=== PATIENT | female | born 1960 | race Caucasian/White ===

== ENCOUNTER 2022-01-09 13:17 | Outpatient (CLI) | payer OTHER, SELFPAY ==
[2022-01-09 12:47] LABS: Chloride* 107 mmol/L (96-114); Sodium* 138 mmol/L (135-149)
[2022-01-09 12:48] LABS: Potassium* 4.4 mmol/L (3.6-5.1)
[2022-01-09 12:50] LABS: Blood Urea Nitrogen* 17 mg/dL (7-30); Carbon Dioxide* 27 mmol/L (20-32); Cholesterol* 160 mg/dL (90-199); Creatinine* 0.8 mg/dL (0.5-1.5); Estimated Glomerular Filt Rate 83 ml/min; Glucose* 98 mg/dL (60-115)
[2022-01-09 12:51] LABS: Calcium* 9.3 mg/dL (8.4-10.6); HDL Cholesterol* 54 mg/dL (>=50); LDL Cholesterol Calculated 92 mg/dL (<100); Triglycerides* 72 mg/dL (40-149)
== END 2022-01-09 13:18 | disposition home or self-care (01) ==
PROVIDERS: PCP Emergency Medicine; Visit Provider Emergency Medicine
DX: Z00.00 Encounter for general adult medical examination without abnormal findings (principal); I10 Essential (primary) hypertension; Z13.6 Encounter for screening for cardiovascular disorders
CPT/HCPCS: 80048; 80061

== ENCOUNTER 2022-06-12 08:34 | Outpatient (CLI) | payer OTHER, SELFPAY ==
--- NOTE | 2022-06-12 09:15 | CRLHL7_ITS ---
For Patients: As a result of the Century Cures Act, medical imaging exams and procedure reports are released immediately into your electronic medical record. You may view this report before your referring provider. If you have questions, please contact your health care provider. BILATERAL SCREENING MAMMOGRAM WITH COMPUTER-AIDED DETECTION AND TOMOSYNTHESIS TECHNIQUE: CC and MLO views were obtained. These mammographic images have been obtained using full-field digital technique. These mammographic images were interpreted with the benefit of computer-aided detection. Breast Tomosynthesis was used in this interpretation. COMPARISON FILM: 01/16/20 Diag, 01/16/20 US bx, 01/11/20 Lt Diag, 01/02/19. FINDINGS: The breasts are heterogeneously dense, which may obscure small masses IMPRESSION: There is no radiographic evidence for malignancy. ASSESSMENT: BI-RADS Category 2: Benign RECOMMENDATION: Routine screening mammogram in 1 year. A lay language report of this examination will be provided to the patient. Omar Mattson M.D. Diagnostic Radiologist [email or web address] KAYLA/Dictated by: Omar Mattson MD @ 06/12/2022 1:11:00 PM (Electronically Signed)
== END 2022-06-12 08:35 | disposition home or self-care (01) ==
PROVIDERS: PCP Emergency Medicine; Visit Provider Emergency Medicine
DX: Z12.31 Encounter for screening mammogram for malignant neoplasm of breast (principal); R92.2 Inconclusive mammogram
CPT/HCPCS: 77063; 77067

== ENCOUNTER 2023-03-15 09:52 | Outpatient (CLI) | payer OTHER, SELFPAY | END 2023-03-15 09:53 | disposition home or self-care (01) | LOC: NFLDREF 03-16 11:21 | PROVIDERS: PCP Emergency Medicine; Referring Provider Emergency Medicine; Visit Provider Emergency Medicine | DX: I10 Essential (primary) hypertension (principal); Z13.1 Encounter for screening for diabetes mellitus; Z13.6 Encounter for screening for cardiovascular disorders; M85.80 Other specified disorders of bone density and structure, unspecified site; Z78.0 Asymptomatic menopausal state | CPT/HCPCS: 80048; 80061; 82306 ==

== ENCOUNTER 2023-06-23 13:12 | Outpatient (CLI) | payer OTHER, SELFPAY ==
--- NOTE | 2023-06-23 13:30 | XR_ITS ---
Patient: AMEE VYAS Facility:?[facility] Patient ID:?[id number] Site Patient ID:?[id number]. Site :?[id number] Study:?DEXA-Bone Density SPINE/BOTH HIPS-06/23/2023 1:38:08 PM Ordering Physician:NATALIA Final Report: DXA BONE MINERAL DENSITY STUDY Reason for exam: Screening. Current height (in): 67. Weight (lb): 172. Menopause age: 48. Ethnicity: White. 1. Have you had a previous hip or vertebral fracture? No. 2. Have you had any fractures during your adult life which did not result from significant trauma (e.g., auto accident)? No. 3. Did either of your parents have a hip fracture? No. 4. Do you smoke? No. 5. Have you ever taken Glucocorticoids? No. 6. Do you have rheumatoid arthritis? No. 7. Do you have secondary osteoporosis? No. 8. Do you drink 3 or more alcoholic drinks per day? No. 9. Are you being treated for osteoporosis? No. 10. Have you ever taken any of the following medications: Actonel, Evista, Fosamax, Miacalcin, Reclast, Boniva, Forteo, HRT (i.e., estrogen/hormone therapy), Protelos, Prolia, Vitamin D, Calcium, other ? please specify. ANSWER: Yes, Fosamax (i.e. alendronate), Vitamin D, and calcium. 11. Do you have any of the following medical conditions: Anorexia or bulimia, asthma or emphysema, end stage renal disease, hyperparathyroidism, any seizure disorders, cancer, inflammatory bowel diseases, hysterectomy, other ? please specify. ANSWER: No. 12. What was your maximum height (inches)? 67. 13. Do you perform weight bearing exercise regularly? Yes. 14. Do you regularly consume dairy products? Yes. 15. Do you drink caffeinated beverages? Yes. If female: 16. At what age did your period start? 11. 17. Are you premenopausal? No. 18. How many full-term pregnancies have you had? 2. 19. Have you ever missed your period for more than 6 months in a row (not including or menopause)? No. TECHNIQUE: Bone mineral density study was performed using the [employer]. FINDINGS: The results of the study expressed as bone mineral density (BMD) are as follows: Lumbar spine L1 to L4: BMD: 0.965 g/cm2. T-score: -0.7. Z-score: 1.0 Neck Left: BMD: 0.748 g/cm2. T-score: -0.9. Z-score: 0.6 Right: BMD: 0.743 g/cm2. T-score: -1.0. Z-score: 0.5 Total Left: BMD: 0.926 g/cm2. T-score: -0.1. Z-score: 1.1 Right: BMD: 0.903 g/cm2. T-score: -0.3. Z-score: 0.9 IMPRESSION: Normal bone density. Omar Mattson M.D. Diagnostic Radiologist [email or web address] ANKIT/radha D& Transcribed: 12:55 p.mMarizol garcia/Dictated by: Omar Mattson MD @ 06/24/2023 9:04:00 AM Signed by:?Omar Mattson MD @06/24/2023 1:42:46 PM (Electronic Signature)
--- NOTE | 2023-06-23 14:00 | MM_ITS ---
Patient: AMEE VYAS Facility:?[facility] Patient ID:?[id number] Site Patient ID:?[id number]. Site :?1960 Study:?XRay-Breast Bilateral 3D W/CAD-06/23/2023 1:57:50 PM Ordering Physician:?Daina Ovalles Final Report: BILATERAL SCREENING MAMMOGRAM WITH COMPUTER-AIDED DETECTION AND TOMOSYNTHESIS TECHNIQUE: CC and MLO views were obtained. These mammographic images have been obtained using full-field digital technique. These mammographic images were interpreted with the benefit of computer-aided detection. Breast Tomosynthesis was used in this interpretation. COMPARISON FILM: 06/12/22, 01/16/20, 01/11/20. FINDINGS: The breasts are heterogeneously dense, which may obscure small masses. IMPRESSION: There is no radiographic evidence for malignancy. ASSESSMENT: BI-RADS Category 2: Benign RECOMMENDATION: Routine screening mammogram in 1 year. A lay language report of this examination will be provided to the patient. Omar Mattson M.D. Diagnostic Radiologist [email or web address] DSM/sp R& Transcribed: 6:06 p.m. SP/Dictated by: Omar Mattson MD @ 06/24/2023 10:08:00 AM Signed by:?Omar Mattson MD @06/25/2023 5:42:52 AM (Electronic Signature)
== END 2023-06-23 13:13 | disposition home or self-care (01) ==
LOC: RAD 13:13
PROVIDERS: PCP Emergency Medicine; Visit Provider Emergency Medicine
DX: Z12.31 Encounter for screening mammogram for malignant neoplasm of breast (principal); R92.2 Inconclusive mammogram; Z13.820 Encounter for screening for osteoporosis
CPT/HCPCS: 77063; 77067; 77080

== ENCOUNTER 2024-03-20 08:51 | Outpatient (CLI) | payer MEDICARE, OTHER, SELFPAY | END 2024-03-20 08:52 | disposition home or self-care (01) | LOC: NFLDREF 03-21 05:43 | PROVIDERS: PCP Emergency Medicine; Referring Provider Emergency Medicine; Visit Provider Emergency Medicine | DX: I10 Essential (primary) hypertension (principal); Z13.6 Encounter for screening for cardiovascular disorders | CPT/HCPCS: 80048; 80061 ==

== ENCOUNTER 2024-03-22 13:33 | Outpatient (CLI) | payer MEDICARE, OTHER, SELFPAY ==
[2024-03-25 01:14] LABS: HPV Source Cervical; HPV, High Risk by TMA Not Detected
== END 2024-03-22 13:34 | disposition home or self-care (01) ==
PROVIDERS: PCP Emergency Medicine; Visit Provider Emergency Medicine
DX: Z12.4 Encounter for screening for malignant neoplasm of cervix (principal); Z11.51 Encounter for screening for human papillomavirus (HPV)
CPT/HCPCS: 87624; 87625; 88141; 88142

== ENCOUNTER 2024-06-20 09:24 | Outpatient (CLI) | payer MEDICARE, OTHER, SELFPAY | END 2024-06-20 09:25 | disposition home or self-care (01) | PROVIDERS: PCP Emergency Medicine; Visit Provider Emergency Medicine | DX: D64.9 Anemia, unspecified (principal); Z13.21 Encounter for screening for nutritional disorder | CPT/HCPCS: 82607; 82728; 83540; 83550 ==

== ENCOUNTER 2024-06-22 12:23 | Outpatient (CLI) | payer MEDICARE, OTHER, SELFPAY ==
[2024-06-22 13:45] VITALS: BP 164/61; PULSE 84
--- NOTE | 2024-06-22 14:54 | W.PM.STED ---
Stress Test Note Date Date of test: 06/22/24 Providers Primary care provider: Daina Ovalles Stress test physician: Subhash Mancia Stress Test Note Stress test ordered: Stress Echo Indication for test: Chest pain Results discussion: Patient is a very nice 63-year-old female presents for the above test after discussion the risks benefits and side effects she would like to proceed, cardiac stress test medical history form is reviewed entirely, pretest EKG shows normal sinus rhythm with a ventricular rate of 68 and a blood pressure 146/77, no acute ST wave changes are notable. Standard Beka protocol is used for a duration of 10 minutes 2nd and she achieved a metabolic equivalent of 11.7 Mets, maximum heart rate was 149 which is 112% of the maximum, with about some a blood pressure of 220/86. Test is terminated because of fulfillment of protocol, there was some ST wave depression of, of 2 mm noted at maximal exercise, in the inferior leads 2 3 and AVF. 1 mm depression in noted in V5 and V6. No dysrhythmias are noted. Impression: Objectively positive, subjectively negative. Follow up suggested: Await echo images, clinical correlation with this will be needed, patient exercised to a high level, this may be a false positive based on this. She recovered normally left this emergency room in good condition.
== END 2024-06-22 12:24 | disposition home or self-care (01) ==
PROVIDERS: PCP Emergency Medicine; Visit Provider Emergency Medicine
DX: R07.9 Chest pain, unspecified (principal)
CPT/HCPCS: 93016; 93325; 93351

== ENCOUNTER 2024-07-03 14:03 | Outpatient (CLI) | payer MEDICARE, OTHER, SELFPAY ==
--- NOTE | 2024-07-03 14:40 | CRLHL7_ITS ---
For Patients: As a result of the Century Cures Act, medical imaging exams and procedure reports are released immediately into your electronic medical record. You may view this report before your referring provider. If you have questions, please contact your health care provider. BILATERAL SCREENING MAMMOGRAM WITH COMPUTER-AIDED DETECTION AND TOMOSYNTHESIS TECHNIQUE: CC and MLO views were obtained. These mammographic images have been obtained using full-field digital technique. These mammographic images were interpreted with the benefit of computer-aided detection. Breast Tomosynthesis was used in this interpretation. COMPARISON FILM: 06/23/23, 06/12/22, 12/29/19. FINDINGS: The breasts are heterogeneously dense, which may obscure small masses. IMPRESSION: There is no radiographic evidence for malignancy. ASSESSMENT: BI-RADS Category 2: Benign RECOMMENDATION: Routine screening mammogram in 1 year. A lay language report of this examination will be provided to the patient. Omar Mattson M.D. Diagnostic Radiologist [email or web address] SP/Dictated by: Omar Mattson MD @ 07/05/2024 9:06:00 AM (Electronically Signed)
== END 2024-07-03 14:04 | disposition home or self-care (01) ==
LOC: MAMMO 14:04
PROVIDERS: PCP Emergency Medicine; Visit Provider Emergency Medicine
DX: Z12.31 Encounter for screening mammogram for malignant neoplasm of breast (principal); R92.333 Mammographic heterogeneous density, bilateral breasts
CPT/HCPCS: 77063; 77067

== ENCOUNTER 2024-10-23 09:30 | Outpatient (CLI) | payer MEDICARE, OTHER, SELFPAY | END 2024-10-23 09:31 | disposition home or self-care (01) | LOC: NFLDREF 10-24 14:07 | PROVIDERS: PCP Emergency Medicine; Referring Provider Emergency Medicine; Visit Provider Emergency Medicine | DX: E61.1 Iron deficiency (principal); I25.10 Atherosclerotic heart disease of native coronary artery without angina pectoris; R93.1 Abnormal findings on diagnostic imaging of heart and coronary circulation | CPT/HCPCS: 80061; 82728 ==